=== PATIENT | male | born 1930 | race Caucasian/White ===

== ENCOUNTER 2017-09-09 08:55 | Outpatient (CLI) | payer MEDICARE ==
--- NOTE | 2017-09-09 11:16 | HP ---
DATE OF SERVICE: 09/09/2017. HISTORY OF PRESENT ILLNESS: Mr. Lexie Baugh Jr. is a very pleasant 87-year-old gentleman acc ompanied by a caregiver who [facility] for evaluation of a wound of the right hand, left hand and right upper back from a fall in the shower approximately 9 days ago. The patient has been receiving dressing changes of Triple Antibiotic ointment followed by a secondary dressing on a d aily basis. The patient's caregiver states that she has been performing the dressing changes for Mr. Baugh. The patient has no other complaints today. He denies any fever or chills. PAST MEDICAL HISTORY: 1. Mitral valve prolapse. 2. Hypertension. 3. Parkinson's disease. 4. Hypothyroidism. PAST SURGICAL HISTORY: 1. Right nephrectomy. 2. Median sternotomy for valve repair. 3. Pacemaker placement. 4. Spinal fusion. 5. Right femoral artery exploration with oversewing of AV fistula. MEDICATIONS: 1. Digoxin. 2. Lisinopril. 3. Coreg. 4. Simvastatin. 5. Levothyroxine. 6. Carbidopa/levodopa. 7. Lasix. 8. Gabapentin. 9. Metolazone. 10. Eliquis. 11. Potassium. ALLERGIES: PENICILLIN. SOCIAL HISTORY: Significant for tobacco use of approximately 1 pack of cigarettes per day for 5 year s. The patient states that he stopped smoking in 1951. Social history is also significant for ETOH use in the past. The patient states he has not consumed any alcohol in 50 years. FAMILY HISTORY: Negative for diabetes mellitus or coronary artery disease. PHYSICAL EXAMINATION: VITAL SIGNS: Pulse 82, respirations 18, blood pressure 103/55. GENERAL: An 87-year-old gentleman sitting on chair in examination room in no acute distress. HEENT: Normocephalic, atraumatic. NECK: No nuchal rigidity. CHEST: Clear to auscultation. CARDIAC: Regular rate and rhythm. ABDOMEN: Soft. EXTREMITIES: No clubbing or cyanosis. SKIN: A wound of the dorsum of the right hand, left hand and of the right upper back is present. Al l of the wounds are healing without complications or any signs of infection. No serous or purulent d rainage is associated with any of the wounds. No erythema of the skin surrounding any of the wounds is present. No maceration of the skin of the periwound of any of the wounds is noted. ASSESSMENT AND PLAN: 1. Multiple wounds subsequent to a fall in the shower as described above. As stated above, these wo unds are all healing without complications or any signs of infection. No antibiotics will be prescri bed today based upon the appearance of the wounds. The patient's caregiver has been instructed to pe rform dressing changes of Mepilex border on the patient's bath days. As per the patient's request Mr Lynette Baugh will return to the [facility] on an as needed basis. 2. Mitral valve prolapse. 3. Hypertension. 4. Parkinson's disease. 5. Hypothyroidism.
== END 2017-09-09 08:56 | disposition home or self-care (01) ==
LOC: WCC 08:55
PROVIDERS: ATTEND Family Medicine
DX: S61.402D Unspecified open wound of left hand, subsequent encounter (principal); S61.401D Unspecified open wound of right hand, subsequent encounter; S21.201D Unspecified open wound of right back wall of thorax without penetration into thoracic cavity, subsequent encounter; G20 Parkinson's disease; I10 Essential (primary) hypertension; E03.9 Hypothyroidism, unspecified; I34.1 Nonrheumatic mitral (valve) prolapse
CPT/HCPCS: 97139; 97602; G0463; 99203

== ENCOUNTER 2017-09-14 15:46 | Emergency (ER) | payer MEDICARE ==
[2017-09-14 16:35] LABS: Bilirubin Negative (Negative); Blood, Urine Negative (Negative); Clarity Clear (Clear); Glucose, Urine (Dipstick) Negative (Negative); Leukocyte Negative (Negative); Nitrite Negative (Negative); Protein, Urine (Dipstick) Negative (Neg-Trace)
--- NOTE | 2017-09-14 17:11 | CT ---
CT OF THE THORACIC SPINE WITHOUT IV CONTRAST: 09/14/17 INDICATION: 87-year-old male with right flank pain and lower back pain after a fall ten days ago. COMPARISON: None. FINDINGS: There is a superior end plate compression fracture of L1 that is incompletely evaluated on the curren t exam. There is diffuse osteopenia and multilevel spondylosis of the thoracic spine. No acute fractu re is seen. involving the thoracic spine. There are chronic lung changes present. There are prominent vascular calcifications involving the thoracic aorta. No appreciable osseous central canal narrowin g is present. No definite osseous neural foraminal narrowing is evident. IMPRESSION: 1. Superior end plate compression abnormality of L1 that is incompletely evaluated on the curren t examination. This is of undetermined chronicity. This was not present on a comparison CT dated . 2. 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 3. Diffuse osteopenia. POS: [facility]
--- NOTE | 2017-09-14 17:20 | CT ---
CT OF LUMBAR SPINE WITHOUT CONTRAST: 09/14/17 INDICATION: Fall ten days ago with back pain. FINDINGS: There is a superior end plate compression abnormality of L1 with loss of height of approximately 15%. No significant retropulsion of bone fragments seen from the posterior wall of the L1 vertebra. No ad ditional fracture is evident. There is severe multilevel spondylosis of the lumbar spine. There is fa cet arthrodesis screws bilaterally at L4-5 and L5-S1. There is posterior bone graft spanning L4 throu gh S1. There is vacuum disc phenomenon at L4-5, L3-4, and L2-3. There is diffuse osteopenia. The face t screws at L4-5 do enter into the spinal canal on the right and potentially impinges the traversing right L5 nerve root. This is best seen on image 93 of series 5. There is a bladder diverticulum invol ving posterolateral aspect of the bladder measuring 2.3 cm on image 150. There is scattered diverticu la. There are prominent vascular calcifications. IMPRESSION: 1. Acute superior end plate compression abnormality of L1. 2. Postoperative change of a posterior interbody fusion of L4 through S1. Facet fixation screws at L4-5 on the right penetrates the spinal canal and its tip rests in the region of the expected suba rticular lateral recess of L4-5 and potentially impinges the traversing right L5 nerve root. POS: [facility]
== END 2017-09-14 17:50 | disposition home or self-care (01) ==
LOC: SCSER 15:46
DX: S32.018A Other fracture of first lumbar vertebra, initial encounter for closed fracture (principal); S20.221A Contusion of right back wall of thorax, initial encounter; G20 Parkinson's disease; I48.91 Unspecified atrial fibrillation; Z79.899 Other long term (current) drug therapy; W01.0XXA Fall on same level from slipping, tripping and stumbling without subsequent striking against object, initial encounter
CPT/HCPCS: 72128; 72131; 81003

== ENCOUNTER 2017-10-03 14:13 | Outpatient (CLI) | payer MEDICARE ==
--- NOTE | 2017-10-03 14:57 | RAD ---
LUMBAR SPINE: Date: 10/03/17 HISTORY: Pain FINDINGS: There is mild progressive height loss of the L1 compression fracture, approximately 30% anterior heig ht loss. No new compression deformity is present. There are posterior element screws through the L4-5 and L5-S1` facet joints bilaterally. Moderate dextroscoliosis. IMPRESSION: Mild progressive height loss of L1 compression fracture with approximately 30% height loss anteriorly . No retropulsion is appreciated. POS: [facility]
== END 2017-10-03 14:14 | disposition home or self-care (01) ==
LOC: TBSIIMAG 14:13
PROVIDERS: ATTEND Neurological Surgery
DX: S32.010A Wedge compression fracture of first lumbar vertebra, initial encounter for closed fracture (principal); R29.890 Loss of height
CPT/HCPCS: 72100